=== PATIENT | female | born 2000 | race Caucasian/White ===

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

== ENCOUNTER → 2021-02-14 | Outpatient (CLI) | payer OTHER ==
--- NOTE | 2021-02-14 11:53 | REP ---
INDICATION: DATING AND VIABILITY. COMPARISON: None. TECHNIQUE: Transvesical and transvaginal imaging FINDINGS: The uterus measures 8.1 x 4.9 x 7 cm. The parenchymal echo pattern is within normal limits. Within the endometrial cavity there is a tiny round anechoic structure with increased echoes surrounding it. Within the gestational sac there is a tiny anechoic structure consistent with a yolk sac. There is no echogenic material seen within the gestational sac that would be considered consistent with a pole. Doppler interrogation of the gestational sac shows no evidence of cardiac activity. The mean gestational sac diameter is consistent with a 5 week 1 day gestational age. Neither ovary was optimally visualized. IMPRESSION: Early OB ultrasound as described above. Follow-up examination is recommended to confirm a pole and re-evaluate the adnexal spaces for better visualization of each ovary. <Electronically signed by Timmy Moseley > 02/14/21 [id number]
== END ==
LOC: M RAD 10:43
PROVIDERS: ATTEND Physician Assistant Medical
DX: Z32.01 Encounter for pregnancy test, result positive (principal); Z3A.01 Less than 8 weeks gestation of pregnancy